=== PATIENT | male | born 1965 | race Caucasian/White ===

== ENCOUNTER 2017-11-09 16:10 | Inpatient (IN) | payer OTHER ==
[~2017-11-09] VITALS: Ht 172.7 cm; Wt 87.9 kg
[~2017-11-09 16:10] MED LIST: BENZ1 PO; HALO10 PO; METF500 PO; PROT40TA PO; TEMA15 PO
[2017-11-09 16:21] VITALS: BP 116/78; PULSE 90; RESP 16; TEMP 98.3; O2SAT 98
[2017-11-09 17:11] LABS: AUTOMATED NEUTROPHIL # 5.5 TH/MM3 (1.8-7.7); BASOPHIL # 0.1 TH/MM3 (0-0.2); BASOPHIL % 0.8 % (0.0-2.0); EOSINOPHIL # 0.1 TH/MM3 (0-0.4); EOSINOPHIL % 1.5 % (0.0-4.0); HEMATOCRIT 37.5 % (39.0-51.0); HEMOGLOBIN 12.6 GM/DL (13.0-17.0); LYMPH % 20.6 % (9.0-44.0); LYMPHOCYTE # 1.6 TH/MM3 (1.0-4.8); MEAN CORPUSCULAR HEMOGLOBIN 27.6 PG (27.0-34.0); MEAN CORPUSCULAR HGB CONC 33.7 % (32.0-36.0); MEAN PLATELET VOLUME 8.1 FL (7.0-11.0); MONOCYTE # 0.4 TH/MM3 (0-0.9); NEUT % 72.1 % (16.0-70.0); PLATELET COUNT 261 TH/MM3 (150-450); RED BLOOD COUNT 4.58 MIL/MM3 (4.50-5.90); WHITE BLOOD COUNT 7.7 TH/MM3 (4.0-11.0)
[2017-11-09 17:35] LABS: ALBUMIN 4.1 GM/DL (3.4-5.0); BLOOD UREA NITROGEN 19 MG/DL (7-18); CALCIUM 9.1 MG/DL (8.5-10.1); CHLORIDE 103 MEQ/L (98-107); CREATININE 1.39 MG/DL (0.60-1.30); GLOMERULAR FILTRATION RATE 54 ML/MIN (>89); GLUCOSE,RANDOM 130 MG/DL (74-106); SODIUM (NA) 138 MEQ/L (136-145)
[2017-11-09 17:44] LABS: ALKALINE PHOSPHATASE 66 U/L (45-117); ALT (GPT) 19 U/L (12-78); AST (GOT) 5 U/L (15-37); TOTAL BILIRUBIN ADULT 0.5 MG/DL (0.2-1.0); TOTAL PROTEIN 7.9 GM/DL (6.4-8.2)
[2017-11-09 17:45] LABS: ACETAMINOPHEN LESS THAN 2.0 MCG/ML (10.0-30.0)
[2017-11-09 18:15] VITALS: BP 132/88; PULSE 80; RESP 18; TEMP 97.6; O2SAT 98
--- NOTE | 2017-11-09 20:05 | PD ---
HPI Chief Complaint: Psychiatric Symptoms Time Seen by Provider: 19:42 Travel History International Travel<30 days: No Contact w/Intl Traveler<30days: No Traveled to known affect area: No History of Present Illness HPI 52-year-old American only speaking male with PMH of schizophrenia presents to the ED from [facility] under [facility] for evaluation of paranoid behavior. According to the patient he was involved in a family disagreement over the tidal to his car with his brother and nephew. He states that the police were called to the scene and he was brought to the ED. He states that his brother told him he was going to the psychiatrist. On presentation he denies suicidal or homicidal ideation. He does admit that he's been hearing noises for the last 3 days. He states that he sometimes feels that he hears his brother, the hospital he looks no one is there. He endorses taking his daily medications as prescribed. He denies previous history of suicide attempt. He denies use of alcohol or any illicit drugs. He has no somatic complaints. All communication through video interpretation services. PFSH Past Medical History Anxiety: Yes Depression: Yes Cancer: No (Per patient) Cardiovascular Problems: Yes (Per patient, Stroke in 2009) Diabetes: Yes (Per patient and patient's brother, Type II) Headaches: Yes (Per patient) Hypertension: Yes Psychiatric: Yes (Inpatient, outpatient, psychotropic medications, and diagnosis) Migraines: Yes Schizophrenia: Yes Seizures: No (Per patient) Social History Alcohol Use: No Tobacco Use: No Substance Use: No Allergies-Medications (Allergen,Severity, Reaction): Coded Allergies: No Known Allergies (Unverified , 03/26/15) Reported Meds & Prescriptions Reported Meds & Active Scripts Active Restoril 15 mg (Temazepam) 15 Mg Cap 30 Mg PO HS 30 Days Protonix (Pantoprazole Sodium) 40 Mg Tabdr 40 Mg PO DAILY PRN 30 Days Glucophage 500 mg (Metformin HCl) 500 Mg Tab 1,000 Mg PO BIDPC PRN 30 Days Haldol (Haloperidol) 10 Mg Tab 15 Mg PO DAILY PRN 30 Days Benztropine Mesylate 1 Mg Tab 0.5 Mg PO BID 30 Days Review of Systems Except as stated in HPI: all other systems reviewed are Neg Physical Exam Narrative GENERAL: Well-nourished, well-developed male in no acute distress. SKIN: Focused skin assessment warm/dry. HEAD: Normocephalic. EYES: No scleral icterus. No injection or drainage. NECK: Supple, trachea midline. No JVD or lymphadenopathy. CARDIOVASCULAR: Regular rate and rhythm without murmurs, gallops, or rubs. RESPIRATORY: Breath sounds clear and equal bilaterally. No accessory muscle use. GASTROINTESTINAL: Abdomen soft, non-tender, nondistended. Active bowel sounds. MUSCULOSKELETAL: No cyanosis, or edema. BACK: Nontender without obvious deformity. No CVA tenderness. Data Data Last Documented VS Vital Signs Date Time Temp Pulse Resp B/P (MAP) Pulse Ox O2 Delivery O2 Flow Rate FiO2 11/10/17 06:14 88 18 147/80 (102) 99 Room Air 11/09/17 18:15 97.6 Orders Orders Complete Blood Count With Diff (11/09/17 16:25) Comprehensive Metabolic Panel (11/09/17 16:25) Psych Screen (11/09/17 16:25) Drug Screen, Random Urine (11/09/17 16:25) Alcohol (Ethanol) (11/09/17 16:25) Salicylates (Aspirin) (11/09/17 16:25) Tylenol (Acetaminophen) (11/09/17 16:25) Diet Regular Basic (11/10/17 Breakfast) Labs Laboratory Tests Test 11/09/17 16:16 11/09/17 16:39 Urine Opiates Screen NEG Urine Barbiturates Screen NEG Urine Amphetamines Screen NEG Urine Benzodiazepines Screen NEG Urine Cocaine Screen NEG Urine Cannabinoids Screen NEG White Blood Count 7.7 TH/MM3 Red Blood Count 4.58 MIL/MM3 Hemoglobin 12.6 GM/DL Hematocrit 37.5 % Mean Corpuscular Volume 82.0 FL Mean Corpuscular Hemoglobin 27.6 PG Mean Corpuscular Hemoglobin Concent 33.7 % Red Cell Distribution Width 14.0 % Platelet Count 261 TH/MM3 Mean Platelet Volume 8.1 FL Neutrophils (%) (Auto) 72.1 % Lymphocytes (%) (Auto) 20.6 % Monocytes (%) (Auto) 5.0 % Eosinophils (%) (Auto) 1.5 % Basophils (%) (Auto) 0.8 % Neutrophils # (Auto) 5.5 TH/MM3 Lymphocytes # (Auto) 1.6 TH/MM3 Monocytes # (Auto) 0.4 TH/MM3 Eosinophils # (Auto) 0.1 TH/MM3 Basophils # (Auto) 0.1 TH/MM3 CBC Comment DIFF FINAL Differential Comment Blood Urea Nitrogen 19 MG/DL Creatinine 1.39 MG/DL Random Glucose 130 MG/DL Total Protein 7.9 GM/DL Albumin 4.1 GM/DL Calcium Level 9.1 MG/DL Alkaline Phosphatase 66 U/L Aspartate Amino Transf (AST/SGOT) 5 U/L Alanine Aminotransferase (ALT/SGPT) 19 U/L Total Bilirubin 0.5 MG/DL Sodium Level 138 MEQ/L Potassium Level 3.6 MEQ/L Chloride Level 103 MEQ/L Carbon Dioxide Level 28.0 MEQ/L Anion Gap 7 MEQ/L Estimat Glomerular Filtration Rate 54 ML/MIN Salicylates Level LESS THAN 1.7 MG/DL Acetaminophen Level LESS THAN 2.0 MCG/ML Ethyl Alcohol Level LESS THAN 3 MG/DL MDM Medical Decision Making Medical Screen Exam Complete: Yes Emergency Medical Condition: Yes Differential Diagnosis Adjustment disorder versus anxiety versus bipolar versus depression versus dementia versus electrolyte disorder versus malingering versus mood disorder versus ODD versus psychosis versus PTSD versus schizophrenia versus schizoaffective disorder versus substance-induced mood disorder versus other Narrative Course 52-year-old American only speaking male with PMH of schizophrenia presents to the ED from [facility] [employer] [facility] for evaluation of paranoid behavior. According to the patient he was involved in a family disagreement over the title to his car with his brother and nephew. He denies suicidal or homicidal ideation. He does admit that he's been hearing noises for the last 3 days. He states that he sometimes feels that he hears his brother, but when he looks no one is there. He endorses taking his daily medications as prescribed. He denies previous history of suicide attempt. He denies use of alcohol or any illicit drugs. Vitals reviewed. Vitals reviewed. On exam the patient is calm and cooperative. No concerning abnormalities a CBC, tox screen. Mild elevation of the BUN and creatinine. Patient was allowed orally rehydrate. The patient is medically clear for psychiatric evaluation. Agata Arriaza Nov 09, 2017 20:05
[2017-11-10 06:14] VITALS: BP 147/80; PULSE 88; RESP 18; O2SAT 99
[2017-11-10] MEDS ORDERED: LORazepam 2 MG/ML VIAL IM PRN (16:30)
[2017-11-10] MEDS ORDERED: ALUMINUM/MAGNESIUM/SIMETH 30 ML CUP PO PRN (16:30)
[2017-11-10] MEDS ORDERED: MAGNESIUM HYDROXIDE SUSP 30 ML CUP PO PRN (16:30)
[2017-11-10] MEDS ORDERED: ACETAMINOPHEN 325 MG TAB PO PRN (16:30)
[2017-11-10] MEDS ORDERED: LORazepam 0.5 MG TAB PO PRN (16:30)
[2017-11-10] MEDS: NICOTINE 21 MG/24 HR PATCH T-DERMAL SCH (16:30)
[2017-11-10] MEDS ORDERED: PANTOPRAZOLE SOD 40 MG DELAYED RELEASE TAB PO PRN (16:30)
[2017-11-10] MEDS ORDERED: HALOPERIDOL LACTATE 5 MG/ML AMP ONE (16:39)
[2017-11-10] MEDS ORDERED: LORazepam 2 MG/ML VIAL IM STA (16:40)
[2017-11-10] MEDS ORDERED: HALOPERIDOL LACTATE 5 MG/ML AMP IM STA (16:40)
[2017-11-10] MEDS ORDERED: HALOPERIDOL 5 MG TAB PO PRN (16:45)
[2017-11-10 18:15] VITALS: BP 133/85; PULSE 110; RESP 18; O2SAT 100
[2017-11-10] MEDS: metFORMIN HCL 500 MG TAB PO SCH (19:45)
[2017-11-10] MEDS: BENZTROPINE MESYLATE 1 MG TAB PO SCH (21:05)
[2017-11-11 06:03] VITALS: BP 140/84; PULSE 111; RESP 16; TEMP 97.3; O2SAT 97
[2017-11-11] MEDS: metFORMIN HCL 500 MG TAB PO SCH ×2 (08:06→17:22)
[2017-11-11] MEDS: BENZTROPINE MESYLATE 1 MG TAB PO SCH ×2 (08:06→20:25)
[2017-11-11] MEDS: REMOVE OLD NICODERM (NICOTINE) PATCH T-DERMAL SCH (08:08)
[2017-11-11] MEDS: NICOTINE 21 MG/24 HR PATCH T-DERMAL SCH (08:09)
[2017-11-11 11:59] LABS: BICARBONATE 24.9 MEQ/L (21.0-32.0); BLOOD UREA NITROGEN 20 MG/DL (7-18); CALCIUM 9.1 MG/DL (8.5-10.1); CHLORIDE 100 MEQ/L (98-107); CREATININE 1.12 MG/DL (0.60-1.30); GLOMERULAR FILTRATION RATE 69 ML/MIN (>89); GLUCOSE,RANDOM 151 MG/DL (74-106); SODIUM (NA) 136 MEQ/L (136-145)
[2017-11-11 12:01] LABS: CHOLESTEROL 132 MG/DL (120-200)
[2017-11-11 12:05] LABS: CHOLESTEROL/ HDL RATIO 2.92 RATIO; HDL CHOLESTEROL 45.2 MG/DL (40.0-60.0); LDL CHOLESTEROL 63 MG/DL (0-99); TRIGLYCERIDES 118 MG/DL (42-150)
[2017-11-11 17:55] VITALS: BP 143/89; PULSE 113; RESP 18; TEMP 96.8; O2SAT 100
--- NOTE | 2017-11-11 18:09 | HHI.HP ---
Provisional Diagnosis Admission Date Nov 10, 2017 at 16:21 [place] I. Schizophrenia Certification of Person's Competence To Provide Express and Informed Consent I have personally examined Kyler Champagne , a person being served at [facility] [[email or web address]] on, Nov 11, 2017 17:57. Express and informed consent means consent voluntarily given in writing, by a competent person, after sufficient explanation and disclosure of the subject matter involved to enable the person to make a knowing and willful decision without any element of force, fraud, deceit, duress, or other form of constraint or coercion. This person is 18 years of age or older, is not now known to be incompetent to consent to treatment with a guardian advocate, and does not have a health care surrogate or proxy currently making medical treatment decisions. I have found this person to be one of the following: [] Competent to provide express and informed consent, as defined above, for voluntary admission to this facility and is competent to provide express and informed consent for treatment. He/she has the consistent capacity to make well reasoned, willful, and knowing decisions concerning his or her medical or mental health treatment. The person fully and consistently understands the purpose of the admission for examination/placement and is fully capable of personally exercising all rights assured [place] [x] Incompetent to provide express and informed consent to voluntary admission, and this is incompetent to provide express and informed consent to treatment. The person must be transferred to involuntary status and a petition for a guardian advocate filed with the Circuit Court. [] Refusing to provide express and informed consent to voluntary admission but is competent to provide express and informed consent for treatment. The person must be discharged or transferred to involuntary status. Form shall be completed within 24 hours of a person's arrival at the receiving facility and filed in the clinical record of each person: 1. Admitted on a voluntary basis 2. Permitted to provide express and informed consent to his/her own treatment 3. Allowed to transfer from involuntary to voluntary status 4. Prior to permitting a person to consent to his or her own treatment after having been previously found incompetent to consent to treatment. History of Present Illness Capacity: Has Capacity HPI Patient is a 52-year-old [place] man, single, 3 additional children, unemployed, domicile with his brother and extended family with a past psychiatric history of schizophrenia, with multiple psychiatric admissions ( last time being a few months ago), with no previous suicide attempts or self injury behavior, currently followed up with outpatient psychiatrist Dr. Villalba, who substance use history, past medical history significant for hypertension, CVA (2009), diabetes was brought in the Winter act from [place] for paranoid behavior in the context of recent disagreement with family which patient was noted to be aggressive and hostile along with paranoia trying to harm others which patient was admitted to the inpatient psychiatry for further evaluation and management. Patient was found walking around the unit, was calm and cooperative interview today. Patient states that he had a problem with his brother couple of days ago and went to see her psychiatrist who then referred him to the ER. Patient states that he hadn't taken medications but recently had a change in his regimen and felt that due to this change had become more aggressive. Patient reports having some paranoid ideation unspecified and was not able to identify with whom or when he was paranoid from. He also reports having auditory hallucinations which she last expresses couple days ago. Currently feeling "good, denies any SI, HI, AVH but continues with paranoia. Family psychiatric history: Patient reports causes mental illness, with grandmother having committed suicide Past psychiatric history: Previous psychiatric diagnoses of schizophrenia, multiple psychiatric admissions, last time being months ago, patient with a previous [place] admission 2014, no previous suicide attempt was BEHAVIOR. Patient reports the followed by Dr. Villalba in an outpatient provider last in 2-3 days ago. Patient reports he is on medication regimen which she cannot recall the names of. Substance use history: Denies Past mental history: Hypertension, CVA (2009) diabetes Allergies: NKDA Social history: Originally from [place], single, has 3 adult children, domicile with his brother and his extended family, highest education sixth grade , unemployed. Review of Systems Except as stated in HPI: all other systems reviewed are Neg Past Psych History Violence risk - others (6 mos) Elevated due to recent report of patient's aggressiveness and threatening toward others Violence risk - self (6 mos) Low Substance Abuse History Drugs/Alcohol past 12 months Denies Past Family Social History Coded Allergies: No Known Allergies (Unverified , 03/26/15) Active Scripts Temazepam 15 mg (Restoril 15 mg) 15 Mg Cap, 30 MG PO HS for For anxiety and sleep for 30 Days, CAP 0 Refills Prov:Marcelo Jones MD 03/29/15 Pantoprazole Sod (Protonix) 40 Mg Tabdr, 40 MG PO DAILY Y for for ulcer for 30 Days, TAB.DR 0 Refills Prov:Marcelo Jones MD 03/29/15 Metformin 500 mg (Glucophage 500 mg) 500 Mg Tab, 1000 MG PO BIDPC Y for for diabetes for 30 Days, TAB 0 Refills Prov:Marcelo Jones MD 03/29/15 Haloperidol (Haldol) 10 Mg Tab, 15 MG PO DAILY Y for Psychosis for 30 Days, TAB 0 Refills Prov:Marcelo Jones MD 03/29/15 Benztropine Mesylate (Benztropine Mesylate) 1 Mg Tab, 0.5 MG PO BID for side effect for 30 Days, TAB 0 Refills Prov:Marcelo Jones MD 03/29/15 Current Medications Medications (Trade) Dose Ordered Sig/Ronal Route Start Time Stop Time Status Last Admin (Ativan) 1 mg Q6H PRN PO 11/10/17 16:30 (Ativan Inj) 1 mg Q6H PRN IM 11/10/17 16:30 (Tylenol) 650 mg Q4H PRN PO 11/10/17 16:30 (Milk Of Magnesia Liq) 30 ml DAILY PRN PO 11/10/17 16:30 (Mag-Al Plus Susp Liq) 30 ml Q6H PRN PO 11/10/17 16:30 (Habitrol 21 Mg Patch.24 Hr) 1 patch DAILY T-DERMAL 11/10/17 16:30 (Cogentin) 0.5 mg BID PO 11/10/17 21:00 11/11/17 08:06 (Glucophage) 1,000 mg BIDPC PO 11/10/17 19:45 11/11/17 17:22 (Protonix) 40 mg DAILY PRN PO 11/10/17 16:30 Miscellaneous Information 1 DAILY T-DERMAL 11/11/17 09:00 (Haldol) 15 mg DAILY PO 11/12/17 09:00 Family Psych History Patient reports causes mental illness, with grandmother having committed suicide Social History Originally from [place], single, has 3 adult children, domicile with his brother and his extended family, highest education sixth grade, unemployed. Patient's Strengths (min. 2) Verbal and communicative Physical Exam Vital Signs Vital Signs Date Time Temp Pulse Resp B/P (MAP) Pulse Ox O2 Delivery O2 Flow Rate FiO2 11/11/17 06:03 97.3 111 16 140/84 (102) 97 11/10/17 18:15 Room Air Lab Results Test 11/11/17 10:54 Blood Urea Nitrogen 20 MG/DL Creatinine 1.12 MG/DL Random Glucose 151 MG/DL Calcium Level 9.1 MG/DL Sodium Level 136 MEQ/L Potassium Level 4.1 MEQ/L Chloride Level 100 MEQ/L Carbon Dioxide Level 24.9 MEQ/L Anion Gap 11 MEQ/L Estimat Glomerular Filtration Rate 69 ML/MIN Triglycerides Level 118 MG/DL Cholesterol Level 132 MG/DL LDL Cholesterol 63 MG/DL HDL Cholesterol 45.2 MG/DL Cholesterol/HDL Ratio 2.92 RATIO Mental Status Examination Appearance: Appropriate Consciousness: Alert Orientation: Person, Place, Date/Time Motor Activity: Normal gait Speech: Unremarkable Language: Adequate Fund of Knowledge: Inadequate Attention and Concentration: Adequate Memory: Unremarkable Mood: Anxious, Irritable Affect: Irritable Thought Process & Associations: Other (concrete) Thought Content: Delusional Hallucination Type: Auditory Delusion Type: Paranoid Suicidal Ideation: No Suicidal Plan: No Suicidal Intention: No Homicidal Ideation: No Homicidal Plan: No Homicidal Intention: No Insight: Poor Judgment: Poor Assessment & Plan Problem List: (1) Schizophrenia ICD Codes: F20.9 - Schizophrenia Status: Acute Assessment & Plan Estimated LOS: 5-7 days. Patient is a 52-year-old [place] man who carries a diagnosis schizophrenia, multiple psychiatric admissions, who was burned Winter act due to recent aggressive behavior toward others, paranoid and hostile along with recent noncompliance with treatment for which he was admitted for stabilization. At this time noted to have paranoid delusions, auditory hallucinations, and some disorganization. We'll restart patient on Haldol 15 mg by mouth daily, continue Cogentin 0.5 milligrams by mouth twice a day, continue recommendations as per primary medical team. Collateral patient Marina for family. Petition for involuntary hospitalization started, request second opinion. Discharge planning in progress Discharge Planning Patient to return back to his residence once psychiatrically stable Ravi Rodriguez MD Nov 11, 2017 18:09
[2017-11-12 05:43] VITALS: BP 159/73; PULSE 95; RESP 18; TEMP 98; O2SAT 97
[2017-11-12] MEDS: BENZTROPINE MESYLATE 1 MG TAB PO SCH ×2 (08:25→20:38)
[2017-11-12] MEDS: metFORMIN HCL 500 MG TAB PO SCH ×2 (08:25→17:46)
[2017-11-12] MEDS: NICOTINE 21 MG/24 HR PATCH T-DERMAL SCH (08:40)
[2017-11-12] MEDS: REMOVE OLD NICODERM (NICOTINE) PATCH T-DERMAL SCH (08:40)
[2017-11-12] MEDS ORDERED: HALOPERIDOL 5 MG TAB PO SCH (09:00)
[2017-11-12] MEDS ORDERED: PNEUMOCOCCAL POLYVALENT INJ 25 MCG/0.5 ML SYR IM ONE (10:00)
[2017-11-12] MEDS ORDERED: diphenhydrAMINE HCL 50 MG/ML VIAL ONE (14:29)
[2017-11-12] MEDS ORDERED: HALOPERIDOL LACTATE 5 MG/ML AMP ONE (14:30)
[2017-11-12] MEDS: LORazepam 2 MG/ML VIAL IM PRN (14:37)
[2017-11-12] MEDS ORDERED: LORazepam 2 MG/ML VIAL IM ONE (15:00)
[2017-11-12] MEDS ORDERED: HALOPERIDOL LACTATE 5 MG/ML AMP IM ONE (15:00)
--- NOTE | 2017-11-12 15:01 | PD.PSY.CON ---
Provisional Diagnosis Admission Date Nov 10, 2017 at 16:21 [place] I. Schizophrenia History of Present Illness Service Psychiatry Consult Requested By Dr. Rodriguez Reason for Consult second opinion Primary Care Physician No Primary Care Physician HPI Patient is a 52-year-old [place] man, single, 3 additional children, unemployed, domicile with his brother and extended family with a past psychiatric history of schizophrenia, with multiple psychiatric admissions ( last time being a few months ago), with no previous suicide attempts or self injury behavior, currently followed up with outpatient psychiatrist Dr. Villalba, who substance use history, past medical history significant for hypertension, CVA (2009), diabetes was brought in the Winter act from [facility] for paranoid behavior in the context of recent disagreement with family which patient was noted to be aggressive and hostile along with paranoia trying to harm others which patient was admitted to the inpatient psychiatry for further evaluation and management. Patient was found walking around the unit, was calm and cooperative interview today. Patient states that he had a problem with his brother couple of days ago and went to see her psychiatrist who then referred him to the ER. Patient states that he hadn't taken medications but recently had a change in his regimen and felt that due to this change had become more aggressive. Patient reports having some paranoid ideation unspecified and was not able to identify with whom or when he was paranoid from. He also reports having auditory hallucinations which she last expresses couple days ago. Currently feeling "good, denies any SI, HI, AVH but continues with paranoia. The patient is a 52-year-old [place] man, single, unemployed, domicile with his brother, patient has psychiatric history of schizophrenia, multiple psychiatric hospitalizations, establish outpatient care with Dr. Villalba, no previous suicidal attempts, he has medical history of CVA, hypertension, who was brought on the Winter act due to increased paranoia and hostility with his family. Patient was consulted to be for second opinion. He was found in the [place], he was reluctant to stay with me. Repeatedly saying that we wanted to kill him. 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 However, the patient was sensitive to verbal redirection able to cooperate a little more. She is highly suspicious and paranoid, disorganized and tangential. He denies suicidal and homicidal ideation, he denies visual and auditory hallucinations is fully oriented 3. Past Family Social History Coded Allergies: No Known Allergies (Unverified , 03/26/15) Active Scripts Temazepam 15 mg (Restoril 15 mg) 15 Mg Cap, 30 MG PO HS for For anxiety and sleep for 30 Days, CAP 0 Refills Prov:Marcelo Jones MD 03/29/15 Pantoprazole Sod (Protonix) 40 Mg Tabdr, 40 MG PO DAILY Y for for ulcer for 30 Days, TAB.DR 0 Refills Prov:Marcelo Jones MD 03/29/15 Metformin 500 mg (Glucophage 500 mg) 500 Mg Tab, 1000 MG PO BIDPC Y for for diabetes for 30 Days, TAB 0 Refills Prov:Marcelo Jones MD 03/29/15 Haloperidol (Haldol) 10 Mg Tab, 15 MG PO DAILY Y for Psychosis for 30 Days, TAB 0 Refills Prov:Marcelo Jones MD 03/29/15 Benztropine Mesylate (Benztropine Mesylate) 1 Mg Tab, 0.5 MG PO BID for side effect for 30 Days, TAB 0 Refills Prov:Marcelo Jones MD 03/29/15 Current Medications Medications (Trade) Dose Ordered Sig/Ronal Route Start Time Stop Time Status Last Admin (Ativan) 1 mg Q6H PRN PO 11/10/17 16:30 (Ativan Inj) 1 mg Q6H PRN IM 11/10/17 16:30 11/12/17 14:37 (Tylenol) 650 mg Q4H PRN PO 11/10/17 16:30 (Milk Of Magnesia Liq) 30 ml DAILY PRN PO 11/10/17 16:30 (Mag-Al Plus Susp Liq) 30 ml Q6H PRN PO 11/10/17 16:30 (Habitrol 21 Mg Patch.24 Hr) 1 patch DAILY T-DERMAL 11/10/17 16:30 (Cogentin) 0.5 mg BID PO 11/10/17 21:00 11/12/17 08:25 (Glucophage) 1,000 mg BIDPC PO 11/10/17 19:45 11/12/17 08:25 (Protonix) 40 mg DAILY PRN PO 11/10/17 16:30 Miscellaneous Information 1 DAILY T-DERMAL 11/11/17 09:00 (Haldol) 10 mg BID PO 11/12/17 21:00 (Ativan Inj) 2 mg NOW ONCE IM 11/12/17 15:00 11/12/17 15:01 (Haldol Inj) 10 mg NOW ONCE IM 11/12/17 15:00 11/12/17 15:01 Patient's Strengths (min. 2) Verbal and communicative Physical Exam Vital Signs Vital Signs Date Time Temp Pulse Resp B/P (MAP) Pulse Ox O2 Delivery O2 Flow Rate FiO2 11/12/17 05:43 98.0 95 18 159/73 (101) 97 11/10/17 18:15 Room Air Mental Status Examination Appearance: Appropriate Consciousness: Alert Orientation: Person, Place, Date/Time Motor Activity: Normal gait Speech: Unremarkable Language: Adequate Fund of Knowledge: Inadequate Attention and Concentration: Adequate Memory: Unremarkable Mood: Anxious, Irritable Affect: Irritable Thought Process & Associations: Other (concrete) Thought Content: Delusional Hallucination Type: Auditory Delusion Type: Paranoid Suicidal Ideation: No Suicidal Plan: No Suicidal Intention: No Homicidal Ideation: No Homicidal Plan: No Homicidal Intention: No Insight: Poor Judgment: Poor Assessment & Plan Problem List: (1) Schizophrenia ICD Codes: F20.9 - Schizophrenia Status: Acute Assessment & Plan: I have seen and examined this patient for second opinion. Chart was reviewed. I agree and concur were with Dr. Rodriguez assessment and plan. Assessment & Plan Estimated LOS: Anton Rowan MD Nov 12, 2017 15:01
--- NOTE | 2017-11-12 17:14 | HHI.PYPN ---
Subjective Remarks Patient seen for follow-up, chart reviewed. Discussion with nursing staff reported that the patient had been noted to be inappropriate, partially took medications this morning. Patient was seen being inappropriate with other patients but calm and cooperative with interview; noted to hypervigilant. Patient states feeing "good" with good mood, denies any AH but endorsed paranoia but did not specify. Patient agreed to complete his medications by mouth. Patient later had become more delusional stating that everyone had killed his family and had tried to pick pack worker a chair and required redirection and ETO of Haldol 10mg IM and Ativan 2mg IM. Review of Systems Except as stated in HPI: all other systems reviewed are Neg Mental Status Examination Appearance: Appropriate Consciousness: Alert Orientation: Person, Place, Date/Time Motor Activity: Normal gait Speech: Unremarkable Language: Adequate Fund of Knowledge: Inadequate Attention and Concentration: Adequate Memory: Unremarkable Mood: Anxious, Irritable Affect: Irritable Thought Process & Associations: Other (concrete) Thought Content: Delusional Hallucination Type: Auditory (denies today) Delusion Type: Paranoid Suicidal Ideation: No Suicidal Plan: No Suicidal Intention: No Homicidal Ideation: No Homicidal Plan: No Homicidal Intention: No Insight: Poor Judgment: Poor Results Vitals/IOs Vital Signs Date Time Temp Pulse Resp B/P (MAP) Pulse Ox O2 Delivery O2 Flow Rate FiO2 11/12/17 05:43 98.0 95 18 159/73 (101) 97 11/10/17 18:15 Room Air Assessment & Plan Problem List: (1) Schizophrenia ICD Codes: F20.9 - Schizophrenia Status: Acute Assessment & Plan Patient continues with auditory hallucinations and paranoid/bizarre delusions. He received ETO of Haldol 10mgIM and [id number] IM x 1. Will increase Haldol to 10mg PO BID, continue rest of medications. Collateral pending. Discharge planning in progress. Justification for Cont. Inpt. At risk for further decompensation if at lower level of care. Discharge Planning Patient to return back to brother's residence once psychiatrically stable. Ravi Rodriguez MD Nov 12, 2017 17:14
[2017-11-12] MEDS: HALOPERIDOL 10 MG TAB PO SCH (20:38)
[2017-11-12] MEDS: LORazepam 1 MG TAB PO PRN (23:22)
[2017-11-13 06:03] VITALS: BP 124/70; PULSE 105; RESP 18; TEMP 97.8; O2SAT 99
[2017-11-13] MEDS: HALOPERIDOL 10 MG TAB PO SCH ×2 (08:42→21:00)
[2017-11-13] MEDS: BENZTROPINE MESYLATE 1 MG TAB PO SCH ×2 (08:42→21:00)
[2017-11-13] MEDS: metFORMIN HCL 500 MG TAB PO SCH ×2 (08:43→17:52)
[2017-11-13] MEDS: NICOTINE 21 MG/24 HR PATCH T-DERMAL SCH (09:00)
[2017-11-13] MEDS: REMOVE OLD NICODERM (NICOTINE) PATCH T-DERMAL SCH (09:00)
--- NOTE | 2017-11-13 12:33 | HHI.PYPN ---
Subjective Remarks Pt seen and discussed with staff. He was paranoid and agitated yesterday. He attempted to throw chair at staff due to delusional beliefs that staff were trying to harm family.He received ETO. Today he has been calm but somewhat isolative to his room. He is compliant with medications but suspicious of them. He denies AH. No medication side effects. No SI/HI Mental Status Examination Appearance: Appropriate Consciousness: Alert Orientation: Person, Place, Date/Time Motor Activity: Normal gait Speech: Unremarkable Language: Adequate Fund of Knowledge: Inadequate Attention and Concentration: Adequate Memory: Unremarkable Mood: Other (calm) Affect: Irritable Thought Process & Associations: Other (concrete) Thought Content: Delusional Hallucination Type: Auditory (appears internally stimulated, despite denial) Delusion Type: Paranoid Suicidal Ideation: No Suicidal Plan: No Suicidal Intention: No Homicidal Ideation: No Homicidal Plan: No Homicidal Intention: No Insight: Poor Judgment: Poor Results Vitals/IOs Vital Signs Date Time Temp Pulse Resp B/P (MAP) Pulse Ox O2 Delivery O2 Flow Rate FiO2 11/13/17 06:03 97.8 105 18 124/70 (88) 99 11/10/17 18:15 Room Air Assessment & Plan Problem List: (1) Schizophrenia ICD Codes: F20.9 - Schizophrenia Status: Acute Assessment & Plan Pt improving. Continue current tx plan. Estimated LOS: days Justification for Cont. Inpt. impairmetns in reality testing Alicja Neal MD Nov 13, 2017 12:32
[2017-11-13 17:11] VITALS: BP 134/86; PULSE 105; RESP 16; TEMP 97.7; O2SAT 99
[2017-11-13] MEDS: LORazepam 1 MG TAB PO PRN (21:59)
[2017-11-14] MEDS: HALOPERIDOL 10 MG TAB PO SCH ×2 (08:25→21:00)
[2017-11-14] MEDS: metFORMIN HCL 500 MG TAB PO SCH ×2 (08:25→18:04)
[2017-11-14] MEDS: BENZTROPINE MESYLATE 1 MG TAB PO SCH ×2 (08:25→20:59)
[2017-11-14] MEDS: REMOVE OLD NICODERM (NICOTINE) PATCH T-DERMAL SCH (09:00)
[2017-11-14] MEDS: NICOTINE 21 MG/24 HR PATCH T-DERMAL SCH (09:00)
[2017-11-14] MEDS: LORazepam 2 MG/ML VIAL IM PRN ×2 (10:30→20:10)
--- NOTE | 2017-11-14 11:03 | HHI.PYPN ---
Subjective Remarks Pt seen and discussed with staff. He engaged in bizarre psychotic behavior and was observed shadow boxing and responding to hallucinations last night in room. This morning he c/o of anxiety and was given ativan 1mg PO X1. During interview pt was agitated and was walking around with a sweatshirt wrapped around his fist that he used to punch the wall. He stated that he was waiting for a phone call and people were watching and talking about him. He was agitated and paranoid but did agree to take Risperidone 1mg SL ODT X1 dose. Cogentin 1mg X1 was given for prophylaxis of EPS. Pt calmed down and was able to remain in milieu. Mental Status Examination Appearance: Appropriate Consciousness: Alert Orientation: Person, Place, Date/Time Motor Activity: Normal gait Speech: Unremarkable Language: Adequate Fund of Knowledge: Inadequate Attention and Concentration: Adequate Memory: Unremarkable Mood: Other (calm) Affect: Irritable Thought Process & Associations: Other (concrete) Thought Content: Delusional Hallucination Type: Auditory (appears internally stimulated, despite denial) Delusion Type: Paranoid Suicidal Ideation: No Suicidal Plan: No Suicidal Intention: No Homicidal Ideation: No Homicidal Plan: No Homicidal Intention: No Insight: Poor Judgment: Poor Results Vitals/IOs Vital Signs Date Time Temp Pulse Resp B/P (MAP) Pulse Ox O2 Delivery O2 Flow Rate FiO2 11/13/17 17:11 97.7 105 16 134/86 (102) 99 11/10/17 18:15 Room Air Assessment & Plan Problem List: (1) Schizophrenia ICD Codes: F20.9 - Schizophrenia Status: Acute Assessment & Plan Continue current tx plan. Estimated LOS: days Justification for Cont. Inpt. impairments in safety and reality testing Alicja Neal MD Nov 14, 2017 11:03
[2017-11-14] MEDS ORDERED: BENZTROPINE MESYLATE 1 MG TAB PO ONE (11:15)
[2017-11-14] MEDS ORDERED: risperiDONE ODT 1 MG TAB PO ONE (11:15)
[2017-11-14 17:48] VITALS: BP 131/77; PULSE 75; RESP 18; TEMP 98.8; O2SAT 99
[2017-11-15 06:13] VITALS: BP 119/73; PULSE 88; RESP 17; TEMP 97.7; O2SAT 96
[2017-11-15] MEDS: NICOTINE 21 MG/24 HR PATCH T-DERMAL SCH (09:00)
[2017-11-15] MEDS: REMOVE OLD NICODERM (NICOTINE) PATCH T-DERMAL SCH (09:00)
[2017-11-15] MEDS: metFORMIN HCL 500 MG TAB PO SCH ×2 (09:00→18:15)
[2017-11-15] MEDS: BENZTROPINE MESYLATE 1 MG TAB PO SCH ×2 (09:00→21:06)
[2017-11-15] MEDS: HALOPERIDOL 10 MG TAB PO SCH (09:00)
--- NOTE | 2017-11-15 16:31 | HHI.PYPN ---
Subjective Remarks Patient seen for follow-up, chart review. She staff reported the patient has been restless and agitated and received EQ of Ativan yesterday as he picked up a chair but has been compliant with medications. Patient was found wandering in the unit noted to be calm and cooperative. Patient states that he had been feeling okay reports sleeping well a problem eating and drinking. He mentions that yesterday he did get injection because he attempted to take away his tubing which another patient had broken off of the door handle and was upset at that time and showed the chair but stated he did not have any intention of throwing it or hurting anyone. As time denies any perceptual disturbances or delusions at this time. He mentions that he will be visited by his brother lobo. Review of Systems Except as stated in HPI: all other systems reviewed are Neg Mental Status Examination Appearance: Appropriate Consciousness: Alert Orientation: Person, Place, Date/Time Motor Activity: Normal gait Speech: Unremarkable Language: Adequate Fund of Knowledge: Inadequate Attention and Concentration: Adequate Memory: Unremarkable Mood: Appropriate, Other Affect: Appropriate Thought Process & Associations: Linear, Other (concrete) Thought Content: Appropriate Hallucination Type: None Delusion Type: Paranoid Suicidal Ideation: No Suicidal Plan: No Suicidal Intention: No Homicidal Ideation: No Homicidal Plan: No Homicidal Intention: No Insight: Poor Judgment: Poor Results Vitals/IOs Vital Signs Date Time Temp Pulse Resp B/P (MAP) Pulse Ox O2 Delivery O2 Flow Rate FiO2 11/15/17 06:13 97.7 88 17 119/73 (88) 96 Assessment & Plan Problem List: (1) Schizophrenia ICD Codes: F20.9 - Schizophrenia Status: Acute Assessment & Plan Patient continues to have episodes of behavioral outbursts but as well as frustration from likely barriers no one on the unit staff speak Slovak. We'll increase Haldol to 10 mg a.m./50 mg at bedtime for psychosis. Continue rest of medications. Continue to monitor mood and behavior. Discharge planning in progress Justification for Cont. Inpt. At risk for further decompensation if at lower level of care Discharge Planning Patient to return back to brother residence when psychiatrically stable Ravi Rodriguez MD Nov 15, 2017 16:30
[2017-11-15 18:00] VITALS: BP 131/80; PULSE 109; RESP 17; TEMP 98.6; O2SAT 100
[2017-11-15] MEDS: HALOPERIDOL 5 MG TAB PO SCH (21:06)
[2017-11-16 05:31] VITALS: BP 135/93; PULSE 135; RESP 20; TEMP 96.9; O2SAT 100
[2017-11-16] MEDS: HALOPERIDOL 10 MG TAB PO SCH (08:56)
[2017-11-16] MEDS: BENZTROPINE MESYLATE 1 MG TAB PO SCH ×2 (08:56→20:52)
[2017-11-16] MEDS: metFORMIN HCL 500 MG TAB PO SCH ×3 (08:56→18:20)
[2017-11-16] MEDS: REMOVE OLD NICODERM (NICOTINE) PATCH T-DERMAL SCH (08:56)
[2017-11-16] MEDS: NICOTINE 21 MG/24 HR PATCH T-DERMAL SCH (09:00)
--- NOTE | 2017-11-16 10:49 | HHI.PYPN ---
Subjective Remarks Patient seen for follow-up, chart reviewed. Discussion nursing staff reported patient is feeling better, no noted paranoid ideations. Patient was found participating in group noted to be, cooperative. Patient states feeling somewhat upset that his father was not able to visit they have come to late toward the end of visiting hours were not allowed to be in to see him. She states that they will come again this evening during visiting hours she looks forward to. Patient states that he well, eating and drinking well no physical complaints. Patient denies any auditory or visual hallucinations or any paranoid ideations and been compliant with medications. Review of Systems Except as stated in HPI: all other systems reviewed are Neg Mental Status Examination Appearance: Appropriate Consciousness: Alert Orientation: Person, Place, Date/Time Motor Activity: Normal gait Speech: Unremarkable Language: Adequate Fund of Knowledge: Inadequate Attention and Concentration: Adequate Memory: Unremarkable Mood: Appropriate, Other Affect: Appropriate Thought Process & Associations: Linear Thought Content: Appropriate Hallucination Type: None Delusion Type: None Suicidal Ideation: No Suicidal Plan: No Suicidal Intention: No Homicidal Ideation: No Homicidal Plan: No Homicidal Intention: No Insight: Fair Judgment: Impulsive Results Vitals/IOs Vital Signs Date Time Temp Pulse Resp B/P (MAP) Pulse Ox O2 Delivery O2 Flow Rate FiO2 11/16/17 05:31 96.9 135 20 135/93 (107) 100 Assessment & Plan Problem List: (1) Schizophrenia ICD Codes: F20.9 - Schizophrenia Status: Acute Assessment & Plan Patient at this time noted to have improved mood, not had any behavioral dyscontrol recently, having compliant with treatment not endorsing paranoid ideations nor any perceptual disturbances. Will continue current treatment. Patient's family will visit this evening which collateral be obtained thereafter to assess whether they feel patient is back at baseline. The patient had a behavioral issues that would preclude him from being discharge soon. Continue current treatment. Discharge planning in progress Justification for Cont. Inpt. At risk for decompensation at lower level of care Discharge Planning discharge to brother residence with psychiatrically stable Ravi Rodriguez MD Nov 16, 2017 10:49
[2017-11-16 18:31] VITALS: BP 134/81; PULSE 100; RESP 19; TEMP 97.2; O2SAT 100
[2017-11-16] MEDS: LORazepam 2 MG/ML VIAL IM PRN (19:15)
[2017-11-16] MEDS: HALOPERIDOL 5 MG TAB PO SCH (20:53)
[2017-11-17 07:21] VITALS: BP 96/55; PULSE 110; RESP 18; TEMP 97; O2SAT 98
[2017-11-17] MEDS: BENZTROPINE MESYLATE 1 MG TAB PO SCH ×2 (09:02→20:56)
[2017-11-17] MEDS: LORazepam 1 MG TAB PO PRN (09:02)
[2017-11-17] MEDS: HALOPERIDOL 10 MG TAB PO SCH (09:02)
[2017-11-17] MEDS: metFORMIN HCL 500 MG TAB PO SCH ×2 (09:02→17:43)
--- NOTE | 2017-11-17 11:40 | HHI.PYPN ---
Subjective Remarks Patient seen for follow-up, chart reviewed. Discussion she staff reported the patient wasn't altercation with the patient last evening after he was found upset over the phone with his brother. Patient was provided with ETO of Ativan IM 1. Patient is found walking on the unit noted to be calm and cooperative. Patient noted to be somewhat anxious and upset that his brother had not visited recently to provided with some clothes. Patient continues to be noted to be very frustrated with being on the unit living his brother for being in the hospital. Was expected patient the patient wants continue treatment to deal to maintain better behavioral control prior to consideration for discharge which he acknowledged. Although patient denies any perceptual disorders or delusions patient noted to be somewhat paranoid with his brother. Review of Systems Except as stated in HPI: all other systems reviewed are Neg Mental Status Examination Appearance: Appropriate Consciousness: Alert Orientation: Person, Place, Date/Time Motor Activity: Normal gait Speech: Unremarkable Language: Adequate Fund of Knowledge: Inadequate Attention and Concentration: Adequate Memory: Unremarkable Mood: Anxious Affect: Irritable Thought Process & Associations: Linear Thought Content: Preoccupations (with discharge) Hallucination Type: None Delusion Type: None Suicidal Ideation: No Suicidal Plan: No Suicidal Intention: No Homicidal Ideation: No Homicidal Plan: No Homicidal Intention: No Insight: Fair Judgment: Impulsive Results Vitals/IOs Vital Signs Date Time Temp Pulse Resp B/P (MAP) Pulse Ox O2 Delivery O2 Flow Rate FiO2 11/17/17 07:21 97.0 110 18 96/55 (69) 98 Assessment & Plan Problem List: (1) Schizophrenia ICD Codes: F20.9 - Schizophrenia Status: Acute Assessment & Plan Patient this time continues to be noted somewhat irritable and frustrated and at times noted to be projecting his frustration with limits with other peers unit. Patient had been physically aggressive but had required ETO of Ativan 1 last evening after he was found to be upset with his brother over the phone. Other denies any paranoia patient continues be noted to be some paranoid ideation toward brother. We'll increase Haldol 50 mg by mouth twice a day for psychosis. Continue with the medications. Discharge planning in progress Justification for Cont. Inpt. At risk for further decompensation at lower level of care Discharge Planning Patient to return back to her brother's residence when psychiatrically stable Ravi Rodriguez MD Nov 17, 2017 11:40
[2017-11-17 17:02] VITALS: BP 109/75; PULSE 102; RESP 18; TEMP 97.9; O2SAT 98
[2017-11-17] MEDS: HALOPERIDOL 5 MG TAB PO SCH (20:56)
[2017-11-18 05:42] VITALS: BP 126/83; PULSE 103; RESP 18; TEMP 97.6; O2SAT 97
[2017-11-18] MEDS: metFORMIN HCL 500 MG TAB PO SCH ×2 (08:21→17:09)
[2017-11-18] MEDS: HALOPERIDOL 5 MG TAB PO SCH (08:22)
[2017-11-18] MEDS: BENZTROPINE MESYLATE 1 MG TAB PO SCH (08:22)
[2017-11-18] MEDS ORDERED: Benztropine PO (12:15)
[2017-11-18] MEDS ORDERED: HALO5TAB PO (12:15)
--- NOTE | 2017-11-18 17:02 | HHI.DS ---
Psychiatry Discharge Summary Inpatient Psychiatric care?: Yes Advance Directive: No Reason Not Provided: declined Mental Health AdvanceDirective: No Health Care Proxy: No Admission Admission Date Nov 10, 2017 at 16:21 Admission Diagnosis: (1) Schizophrenia ICD Code: F20.9 - Schizophrenia Brief History Patient is a 52-year-old [place] man, single, 3 additional children, unemployed, domicile with his brother and extended family with a past psychiatric history of schizophrenia, with multiple psychiatric admissions ( last time being a few months ago), with no previous suicide attempts or self injury behavior, currently followed up with outpatient psychiatrist Dr. Villalba, who substance use history, past medical history significant for hypertension, CVA (2009), diabetes was brought in the [place] act from [place] for paranoid behavior in the context of recent disagreement with family which patient was noted to be aggressive and hostile along with paranoia trying to harm others which patient was admitted to the inpatient psychiatry for further evaluation and management. Patient was found walking around the unit, was calm and cooperative interview today. Patient states that he had a problem with his brother couple of days ago and went to see her psychiatrist who then referred him to the ER. Patient states that he hadn't taken medications but recently had a change in his regimen and felt that due to this change had become more aggressive. Patient reports having some paranoid ideation unspecified and was not able to identify with whom or when he was paranoid from. He also reports having auditory hallucinations which she last expresses couple days ago. Currently feeling "good, denies any SI, HI, AVH but continues with paranoia. The patient is a 52-year-old [place] man, single, unemployed, domicile with his brother, patient has psychiatric history of schizophrenia, multiple psychiatric hospitalizations, establish outpatient care with Dr. Villalba, no previous suicidal attempts, he has medical history of CVA, hypertension, who was brought on the Winter act due to increased paranoia and hostility with his family. Patient was consulted to be for second opinion. He was found in the [place], he was reluctant to stay with me. Repeatedly saying that we wanted to kill him. He says that he was trying to call home and nobody steel pickler the phone "you kill my family, you kill my family". However, the patient was sensitive to verbal redirection able to cooperate a little more. She is highly suspicious and paranoid, disorganized and tangential. He denies suicidal and homicidal ideation, he denies visual and auditory hallucinations is fully oriented 3. Tobacco Use In Past 30 Days: No Tobacco Past 30 Days Alcohol Use: Never Hospital Course Patient is a 52-year-old [place] man, single, 3 additional children, unemployed, domicile with his brother and extended family with a past psychiatric history of schizophrenia, with multiple psychiatric admissions ( last time being a few months ago), with no previous suicide attempts or self injury behavior, currently followed up with outpatient psychiatrist Dr. Villalba, who substance use history, past medical history significant for hypertension, CVA (2009), diabetes was brought in the [place] act from [facility] for paranoid behavior in the context of recent disagreement with family which patient was noted to be aggressive and hostile along with paranoia trying to harm others which patient was admitted to the inpatient psychiatry for further evaluation and management. Patient restarted on Haldol and titrated up to 15mg PO BID and benztropine 0.5mg PO BID for psychosis. Due to active psychotic symptoms as well as paranoia and disorganization, these medications started which patient tolerated well to. Patient was noted to start to have progressive improvement of mood although noted to have irritability with staff, at times when frustrated but has had less aggressive behavior and compliant with treatment. Patient was continued to be noted to be irritable at times and with paranoid delusions. Patient was taken to mental health court which the plastics fabrication supervisor had ordered the patient to be discharged back to her despite recommendations for patient to remain for stabilization as it was deemed that the patient did not meet criteria for involuntary hospitalization. Patient agreed to continue medication regimen and outpatient follow up for continuity of care. I have counseled the patient regarding warning signs for need to return to the psychiatric emergency room as part of a general safety plan. Patient advised to call 911 or go nearest ED in case of emergency. Patient agrees with plan. Results Blood Pressure 126 / 83 Vital Signs Date Time Temp Pulse Resp B/P (MAP) Pulse Ox O2 Delivery O2 Flow Rate FiO2 11/18/17 05:42 97.6 103 18 126/83 (97) 97 Laboratory Results Test 11/11/17 10:54 Cholesterol Level 132 MG/DL (120-200) HDL Cholesterol 45.2 MG/DL (40.0-60.0) Hemoglobin A1c 7.0 % (4.3-6.0) LDL Cholesterol 63 MG/DL (0-99) Triglycerides Level 118 MG/DL (42-150) Summary of Procedures None Pending results at discharge: No Medications # of Antipsychotic meds at D/C: 1 Approp Antipsych med options 1 - Minimum of three failed multiple trials of monotherapy. 2 - Documented plan to taper to monotherapy due to previous use of multiple meds OR cross-taper in progress at D/C. 3 - Documentation of augmentation of Clozapine. 4 - Justification other than those listed in allowable values 1-3, document here : Discharge Discharge Date: Nov 18, 2017 Discharge Diagnosis: (1) Schizophrenia ICD Code: F20.9 - Schizophrenia Status: Acute Pt Condition on Discharge: Stable Discharge Disposition: Discharge Home Discharge Instructions Diet Instructions: Heart Healthy Diet Activities you can perform: Regular-No Restrictions Scheduled Appointment: [facility] Appointment Date: Dec 01, 2017 Appointment Time: 8:45 am Discharge Time > 30 minutes Mental Status Examination Appearance: Appropriate Consciousness: Alert Orientation: Person, Place, Date/Time Motor Activity: Normal gait Speech: Unremarkable Language: Adequate Fund of Knowledge: Inadequate Attention and Concentration: Adequate Memory: Unremarkable Mood: Anxious Affect: Anxious Thought Process & Associations: Linear, Other (concrete) Thought Content: Other Hallucination Type: None Delusion Type: Paranoid (less so today) Suicidal Ideation: No Suicidal Plan: No Suicidal Intention: No Homicidal Ideation: No Homicidal Plan: No Homicidal Intention: No Insight: Fair Judgment: Impulsive Discharge/Advance Care Plan Health Problems: (1) Schizophrenia Goals to promote your health * To prevent worsening of your condition and complications * To maintain your health at the optimal level Directions to meet your goals Take your medications as prescribed Follow your dietary instruction Follow activity as directed Keep your appointments as scheduled Take your immunizations and boosters as scheduled If your symptoms worsen call your PCP, if no PCP go to Urgent Care Center or Emergency Room For 24/05 questions related to your inpatient stay or results of tests pending at discharge, please contact Dr. Ravi Rodriguez at Smoking is Dangerous to Your Health. Avoid second hand smoking Ravi Rodriguez MD Nov 18, 2017 17:02
== END 2017-11-18 20:00 | disposition home or self-care (01) | DRG 885 ==
LOC: NEPJ 16:10 → NEDA 11-10 16:21 → H270 11-10 19:39
PROVIDERS: ADMIT Student in an Organized Health Care Education/Training Program; ATTEND Student in an Organized Health Care Education/Training Program
DX: F20.9 Schizophrenia, unspecified (principal); E11.9 Type 2 diabetes mellitus without complications; I10 Essential (primary) hypertension; F41.9 Anxiety disorder, unspecified; F32.9 Major depressive disorder, single episode, unspecified; W22.01XA Walked into wall, initial encounter; Z91.19 Patient's noncompliance with other medical treatment and regimen; Z86.73 Personal history of transient ischemic attack (TIA), and cerebral infarction without residual deficits; Z79.84 Long term (current) use of oral hypoglycemic drugs
CPT/HCPCS: 80048; 80053; 80061; 80307; 82948; 83036; 85025; 99285; J1200; J1630; J2060